=== PATIENT | female | born 1995 | race Two or more races ===

== ENCOUNTER 2017-03-03 09:59 | Emergency (ER) | payer OTHER ==
[~2017-03-03] VITALS: Ht 177.8 cm; Wt 132.0 kg
[2017-03-03 12:19] LABS: CLARITY URINE CLEAR (CLEAR); COLOR URINE YELLOW (YELLOW); GLUCOSE URINE 3+ (NEGATIVE); KETONES URINE NEGATIVE (NEGATIVE); LEUKOCYTE ESTERASE URINE NEGATIVE (NEGATIVE); NITRITE URINE NEGATIVE (NEGATIVE); OCCULT BLOOD URINE NEGATIVE (NEGATIVE); PROTEIN URINE NEGATIVE (NEGATIVE); SPECIFIC GRAVITY URINE 1.028 (1.005-1.030); UROBILINOGEN URINE 0.2 E.U./dL (0.2-1.0)
[2017-03-03 12:30] LABS: BASOPHILS % 0.3 % (0.0-2.0); EOSINOPHILS % 1.4 % (0.0-5.0); HEMATOCRIT. 42.2 % (36.0-48.0); HEMOGLOBIN. 14.2 g/dL (12.0-16.0); LYMPHOCYTES % 23.1 % (20.0-50.0); MEAN CORPUSCULAR VOLUME 77.5 fL (81.0-99.0); MEAN PLATELET VOLUME 9.2 fl (7.4-10.4); MONOCYTES % 5.7 % (2.0-8.0); NEUTROPHILS % 69.5 % (40.0-76.0); PLATELET 172 x1000/uL (130-400); RED BLOOD CELL COUNT 5.44 mill/uL (4.2-5.4); RED CELL DISTRIBUTION WIDTH 13.7 % (11.6-14.6)
[2017-03-03 12:38] LABS: PROTHROMBIN TIME 10.6 sec
[2017-03-03 12:48] LABS: CARBON DIOXIDE 29 mEq/L (21-32); CHLORIDE 100 mEq/L (98-107)
[2017-03-03 13:05] LABS: B-HCG QUANTITATIVE 1156 mIU/mL (<3)
[2017-03-03 13:30] VITALS: BP 129/89
== END 2017-03-03 14:49 | disposition home or self-care (01) ==
LOC: ER 12:53
DX: O20.0 Threatened abortion (principal); F12.10 Cannabis abuse, uncomplicated; E11.9 Type 2 diabetes mellitus without complications; Z3A.00 Weeks of gestation of pregnancy not specified
CPT/HCPCS: 36415; 76801; 80053; 81001; 81025; 83690; 84702; 85025; 85610; 86850; 86900; 99285

== ENCOUNTER 2022-05-14 12:34 | Emergency (ER) | payer MEDICAID, OTHER ==
[~2022-05-14] VITALS: Ht 177.8 cm; Wt 130.0 kg
[2022-05-14 12:53] VITALS: BP 152/93
== END 2022-05-14 19:21 | disposition left against medical advice (07) ==
LOC: ER 12:34
DX: Z53.21 Procedure and treatment not carried out due to patient leaving prior to being seen by health care provider (principal)